=== PATIENT | male | born 1990 | race Caucasian/White ===

== ENCOUNTER 2018-03-13 09:37 | Emergency (ER) | payer SELFPAY ==
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
[2018-03-13 10:37] LABS: ABSOLUTE EOSINOPHILS # (AUTO) 0.1 10^3/uL (0.0-0.6); ABSOLUTE LYMPHOCYTES (AUTO) 1.9 10^3/uL (0.5-4.7); ABSOLUTE MONOCYTES (AUTO) 0.5 10^3/uL (0.1-1.4); ABSOLUTE NEUT (AUTO) 5.4 10^3/uL (1.7-8.2); BASOPHILS % (AUTO) 0.6 % (0-2); EOSINOPHILS % (AUTO) 1.4 % (0-6); HEMATOCRIT 42.4 % (37.9-51.0); HEMOGLOBIN 14.7 g/dL (13.5-17.0); LYMPHOCYTES % (AUTO) 24.1 % (13-45); MEAN CORPUSCULAR HEMOGLOBIN 32.2 pg (27.0-33.4); MEAN CORPUSCULAR HGB CONC 34.6 g/dL (32.0-36.0); MEAN CORPUSCULAR VOLUME 93 fl (80-97); MONOCYTES % (AUTO) 6.1 % (3-13); PLATELET COUNT 239 10^3/uL (150-450); RED BLOOD COUNT 4.55 10^6/uL (4.35-5.55); RED CELL DISTRIBUTION WIDTH 11.9 % (11.5-14.0); SEGMENTED NEUTROPHILS % (AUTO) 67.8 % (42-78); TOTAL CELLS COUNTED % (AUTO) 100 %; WHITE BLOOD COUNT 7.9 10^3/uL (4.0-10.5)
[2018-03-13 11:00] LABS: ALANINE AMINOTRANSFERASE 32 U/L (21-72); ALKALINE PHOSPHATASE 70 U/L (38-126); ANION GAP 8 (5-19); ASPARTATE AMINO TRANSFERASE 26 U/L (17-59); BILIRUBIN,TOTAL 0.2 mg/dL (0.2-1.3); BLOOD UREA NITROGEN 20 mg/dL (7-20); CALCIUM 9.6 mg/dL (8.4-10.2); CARBON DIOXIDE 29 mmol/L (22-30); CHLORIDE 107 mmol/L (98-107); GLUCOSE 89 mg/dL (75-110); SODIUM 144.4 mmol/L (137-145); TOTAL PROTEIN 6.3 g/dL (6.3-8.2)
[2018-03-13 11:01] LABS: ACETAMINOPHEN < 10 ug/mL (10-30); ALCOHOL < 10 mg/dL (NONE DETECTED); SALICYLATE < 1.0 mg/dL (2.0-20.0)
[2018-03-13 11:33] LABS: APPEARANCE,URINE CLEAR; BILIRUBIN,URINE NEGATIVE (NEGATIVE); COLOR,URINE STRAW; GLUCOSE, URINE NEGATIVE (NEGATIVE); KETONES,URINE NEGATIVE (NEGATIVE); LEUKOCYTE ESTERASE,URINE NEGATIVE (NEGATIVE); NITRITE,URINE NEGATIVE (NEGATIVE); PROTEIN,URINE NEGATIVE (NEGATIVE); URINE SPECIFIC GRAVITY 1.017; UROBILINOGEN,URINE NEGATIVE mg/dL (<2.0)
[2018-03-13 11:52] LABS: URINE AMPHETAMINES SCREEN NEGATIVE; URINE BARBITURATES SCREEN NEGATIVE; URINE BENZODIAZEPINES SCREEN NEGATIVE; URINE COCAINE SCREEN NEGATIVE; URINE MARIJUANA (THC) SCREEN NEGATIVE; URINE METHADONE SCREEN NEGATIVE; URINE PHENCYCLIDINE SCREEN NEGATIVE
[2018-03-13] MEDS ORDERED: OLANZAPINE 5 MG TABLET PO ONE (12:48)
[2018-03-13] MEDS ORDERED: BUSPIRONE HCL 10 MG TABLET PO ONE (12:49)
[2018-03-13] MEDS ORDERED: BENZTROPINE MESYLATE 1 MG TABLET PO ONE (12:49)
--- NOTE | 2018-03-13 13:25 | EKG REPORT ---
SEVERITY:- NORMAL ECG - SINUS RHYTHM : Confirmed by: Gordo Bucio MD 13-Mar-2018 13:24:44
[2018-03-13 14:03] VITALS: BP 126/75
== END 2018-03-13 14:03 | disposition home or self-care (01) ==
LOC: ER 09:37
DX: F31.70 Bipolar disorder, currently in remission, most recent episode unspecified (principal); F17.200 Nicotine dependence, unspecified, uncomplicated
CPT/HCPCS: 36415; 80053; 80307; 81001; 85025; 93005; 93010; 99284

== ENCOUNTER 2018-07-15 23:18 | Emergency (ER) | payer SELFPAY ==
[2018-07-16] MEDS ORDERED: IBUPROFEN 800 MG TABLET PO ONE (01:28)
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
--- NOTE | 2018-07-16 02:58 | RADIOLOGY REPORT (SQ) ---
EXAM DESCRIPTION: CT CERVICAL SPINE WITHOUT IV CONTRAST COMPLETED DATE/TME: 07/16/2018 01:28 CLINICAL HISTORY: 28 years Male, pain in neck, back of head, nose and L jaw pain Comparison: None. Technique: No contrast. Coronal and sagittal reformat. This exam was performed according to our departmental dose-optimization program, which includes automated exposure control, adjustment of the mA and/or kV according to patient size and/or use of iterative reconstruction technique.[facility]: Dose Right [facility]: CareDose [facility]: Dose Right [facility]: Teradose 4D [facility]: Face[employer] LIMITATIONS: None Findings: Normal alignment. Normal curvature. No fracture. Normal vertebral heights. Partially imaged nuchal soft tissues, inferior cranium, and upper thorax appear otherwise grossly intact. IMPRESSION: No acute findings.
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
[2018-07-16] MEDS ORDERED: DIPH/PERTUSS(ACELL)/TETANUS VAC/PF 0.5 ML SYR (>=10YO) IM ONE (03:58)
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
[2018-07-16 05:22] VITALS: BP 131/86
== END 2018-07-16 05:22 ==
LOC: ER 23:18
DX: S02.2XXA Fracture of nasal bones, initial encounter for closed fracture (principal); S00.81XA Abrasion of other part of head, initial encounter; Z23 Encounter for immunization; X93.XXXA Assault by handgun discharge, initial encounter
CPT/HCPCS: 70450; 70486; 72125; 90471; 90715; 99284

== ENCOUNTER 2019-11-11 10:57 | Emergency (ER) | payer SELFPAY ==
[2019-11-11 11:02] VITALS: BP 141/87
[2019-11-11 13:12] LABS: AMORPHOUS SEDIMENT,URINE TRACE /HPF; APPEARANCE,URINE SLIGHTLY-CLOUDY; BILIRUBIN,URINE NEGATIVE (NEGATIVE); COLOR,URINE YELLOW; GLUCOSE, URINE NEGATIVE (NEGATIVE); KETONES,URINE NEGATIVE (NEGATIVE); LEUKOCYTE ESTERASE,URINE NEGATIVE (NEGATIVE); NITRITE,URINE NEGATIVE (NEGATIVE); PROTEIN,URINE NEGATIVE (NEGATIVE); URINE SPECIFIC GRAVITY 1.014; UROBILINOGEN,URINE NEGATIVE mg/dL (<2.0)
[2019-11-11] MEDS ORDERED: AZITHROMYCIN 1 GM SUSP PACKET PO ONE (13:32)
[2019-11-11] MEDS ORDERED: ONDANSETRON 4 MG TAB.RAPDIS PO ONE (13:32)
[2019-11-11] MEDS ORDERED: CEFTRIAXONE INJ 250 MG VIAL IM ONE (13:34)
[2019-11-11] MEDS ORDERED: LIDOCAINE 1% INJ-PF (10 MG/ML) 30 ML SDV IM ONE (13:34)
[2019-11-11] MEDS ORDERED: AZITHROMYCIN 250 MG TABLET PO ONE (13:35)
--- NOTE | 2019-11-11 14:10 | ER Document Report ---
ED GI/ - General Chief Complaint: STD Exposure Stated Complaint: NAUSEA,VOMITING Time Seen by Provider: 11/11/19 13:08 Primary Care Provider: [facility] [Provider Group] - Follow up as needed GLADYS MORIN MD [ACTIVE STAFF] - Follow up as needed Mode of Arrival: Ambulatory Information source: Patient Notes: 29-year-old male with no previous medical problems resents emergency room concerns for recurrent STDs. Patient states he is well as his partner tested positive and treated for non-gonococcal urethritis about 6 weeks ago. Patient states went back for retesting a month later and was told his test were negative but continued to complain of symptoms. States he feels like he is not fully emptying his bladder. But denies any dysuria denies any penile discharge. Denies any fevers. Complains of nausea with vomiting intermittently over the past 2 weeks but is able to tolerate p.o. food and fluids today without difficulty. Also complaining of some mid lower back pain. States he has a history of chronic back pain. Not taking any medications for his back pain. He denies any loss of control over bowels or bladder. He denies any saddle anesthesia. No red flags. Pain is not radiating into his legs. Patient denies any recent travel. No COVID-19 exposure TRAVEL OUTSIDE OF THE [place] IN LAST 30 DAYS: No - Related Data Allergies/Adverse Reactions: No Known Allergies Allergy (Unverified 03/13/18 09:39) Past Medical History - General Information source: Patient - Social History Smoking Status: Never Smoker Frequency of alcohol use: None Drug Abuse: Heroin Family History: Reviewed & Not Pertinent Renal/ Medical History: Denies: Hx Peritoneal Dialysis Psychiatric Medical History: Reports: Hx Bipolar Disorder, Hx Depression Review of Systems - Review of Systems Constitutional: No symptoms reported EENT: No symptoms reported Cardiovascular: No symptoms reported Respiratory: No symptoms reported Gastrointestinal: No symptoms reported Genitourinary: Retention Male Genitourinary: No symptoms reported Musculoskeletal: Back pain Skin: No symptoms reported Hematologic/Lymphatic: No symptoms reported Neurological/Psychological: No symptoms reported -: Yes All other systems reviewed and negative Physical Exam - Vital signs Vitals: Temp Pulse Resp BP Pulse Ox 98.2 F 65 14 141/87 H 98 11/11/19 11:01 11/11/19 11:01 11/11/19 11:01 11/11/19 11:01 11/11/19 11:01 - General General appearance: Appears well, Alert In distress: Mild - Respiratory Respiratory status: No respiratory distress Chest status: Nontender Breath sounds: Normal Chest palpation: Normal - Cardiovascular Rhythm: Regular Heart sounds: Normal auscultation Murmur: No - Abdominal Inspection: Normal Distension: No distension Bowel sounds: Normal Tenderness: Nontender Organomegaly: No organomegaly - Genitourinary Inspection: Normal. No: Penile discharge Tenderness: Nontender. No: Lesions, Epididymis tender Cremasteric reflex: Normal Scrotum: Normal Notes: No penile discharge noted. 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 Deformities noted. Nontender over the sciatic notches bilaterally negative straight leg raising bilaterally., Vertebra tenderness - L4 to S1. No: Deformity/step-off, CVA tenderness - Neurological Neuro grossly intact: Yes Cognition: Normal Orientation: AAOx4 [place] Coma Scale Eye Opening: Spontaneous [place] Coma Scale Verbal: Oriented [place] Coma Scale Motor: Obeys Commands [place] Coma Scale Total: 15 Speech: Normal Motor strength normal: LUE, RUE, LLE, RLE Sensory: Normal Knee - Reflex grade: 2 = Normal Notes: Ambulatory with a steady gait. Neurologically intact. - Skin Skin Temperature: Warm Skin Moisture: Dry Skin Color: Normal Course - Re-evaluation Re-evalutation: 11/11/19 14:19 Patient is resting comfortably with decreased pain. Ambulatory with a steady gait. Negative straight leg raising bilaterally. Neurovascularly intact. Reviewed urine results with patient. Patient requested to be treated for gonorrhea and chlamydia even though his test results were not result today. He was notified that he will be called if his gonorrhea and/or chlamydia test are positive. Take Flexeril as prescribed. Can take Tylenol or Motrin as needed for pain. Outpatient follow-up with urology if symptoms are persistent. Also recommend outpatient follow-up with a primary care physician on-call physician was provided. Patient was given strict return to the emergency room guidelines. Return for any new or worsening symptoms. All questions were answered. Patient verbalized understanding and agrees with plan of care. 11/11/19 14:22 - Vital Signs Vital signs: Temp Pulse Resp BP Pulse Ox 98.2 F 65 14 141/87 H 98 11/11/19 11:01 11/11/19 11:01 11/11/19 11:01 11/11/19 11:01 11/11/19 11:01 Discharge - Discharge Clinical Impression: Urinary retention Low back pain Qualifiers: Chronicity: acute Back pain laterality: midline Sciatica presence: without sciatica Qualified Code(s): M54.5 - Low back pain Nausea & vomiting Qualifiers: Vomiting type: unspecified Vomiting Intractability: non-intractable Qualified Code(s): R11.2 - Nausea with vomiting, unspecified Condition: Stable Disposition: HOME, SELF-CARE Instructions: Low Back Pain ([facility]), Urinary Retention ([facility]) Additional Instructions: You have been seen in the Emergency Department (ED) today for back pain. Your workup and exam have not shown any acute abnormalities and you are likely suffering from muscle strain or possible problems with your discs, but there is no treatment that will fix your symptoms at this time. Please take the Flexeril that has been prescribed for you. Can also take Tylenol and/or Motrin as needed for pain. You should also purchase a local lidocaine cream such as "aspercreme with lidocaine" and use per bottle instructions to the affected area. Apply heat to the area as often as you are able. Continue to keep active and avoid prolonged periods of bed rest. Outpatient follow-up with urologist if symptoms persistent. Please follow up with your doctor as soon as possible regarding today's ED visit and your back pain. Return to the ED for worsening back pain, fever, weakness or numbness of either leg, or if you develop either (1) an inability to urinate or have bowel movements, or (2) loss of your ability to control your bathroom functions (if you start having "accidents"), or if you develop other new symptoms that concern you.concern you. Prescriptions: Cyclobenzaprine HCl [Flexeril 10 mg Tablet] 10 mg PO TIDP PRN #15 tab PRN Reason: Ondansetron [Zofran Odt 4 mg Tablet] 1 tab PO Q4H PRN #15 tab.rapdis PRN Reason: For Nausea/Vomiting Referrals: GLADYS MORIN MD [ACTIVE STAFF] - Follow up as needed [facility] [Provider Group] - Follow up as needed
[2019-11-11 14:44] LABS: CHLAM PCR NOT DETECTED (NOT DETECT)
== END 2019-11-11 14:43 | disposition home or self-care (01) ==
LOC: ER 10:57
DX: R33.9 Retention of urine, unspecified (principal); M54.5 Low back pain; R11.2 Nausea with vomiting, unspecified; F11.10 Opioid abuse, uncomplicated; Z20.2 Contact with and (suspected) exposure to infections with a predominantly sexual mode of transmission
CPT/HCPCS: 99283; 96372; 81001; 87491; 87591; S0119; J3490; J0696